=== PATIENT | female | born 1980 ===

== ENCOUNTER 2017-03-23 07:00 | Inpatient (IN) ==
[2017-03-23] MEDS: LACTATED RINGERS 1,000 ML IV SCH ×2 (07:35→08:40)
[2017-03-23] MEDS ORDERED: ceFAZolin 2,000 MG in PREMIX 1 EACH IV ONE (07:56)
[2017-03-23] MEDS ORDERED: FAMOTIDINE 20 MG/2 ML VIAL IV ONE (07:56)
[2017-03-23] MEDS ORDERED: CITRIC ACID/SODIUM CITRATE 30 ML UDCUP PO ONE (07:56)
[2017-03-23] MEDS ORDERED: hydrALAZINE 20 MG/1 ML VIAL IV PRN (08:01)
[2017-03-23 08:16] LABS: Basophils % 0.4 % (0.0-0.8); Eosinophils # 0.1 10*3/uL (0.0-0.87); Hematocrit 34.3 VOL% (35.7-47.0); Hemoglobin 10.6 GM/DL (12.0-16.0); Immature Granulocytes % 0.5 %; Immature Granulocytes Absolute 0.05 #; Lymphocytes # 1.9 10*3/uL (1.4-4.0); Lymphocytes % 21.2 % (21.3-54.2); Mean Corpuscular HGB Conc 30.9 GM/DL (32-36); Mean Corpuscular Hemoglobin 23 PG (27-34); Mean Corpuscular Volume 74.9 FL (87-102); Mean Platelet Volume 9.8 FL (9.6-12.0); Monocytes # 0.7 10*3/uL (0.11-0.8); Monocytes % 7.2 % (1.7-12.7); Neutrophils # 6.4 10*3/uL (1.4-7.4); Neutrophils % 69.7 % (38.7-73.9); Platelet Count 323 T/CUMM (130-400); Red Blood Count 4.58 MC/CUMM (3.8-5.5); White Blood Count 9.1 T/CUMM (4-12)
[2017-03-23 08:25] LABS: INR 0.9; PT Patient Result 9.8 SECS; Partial Thromboplastin Time 28.6 SECS (0-40)
[2017-03-23] MEDS ORDERED: OXYTOCIN 10 UNIT/ML VIAL IM ONE (08:29)
[2017-03-23] MEDS ORDERED: OXYTOCIN/LR 30 UNIT/1,000 ML BAG IV ONE (08:30)
[2017-03-23 08:52] LABS: Albumin 2.5 G/DL (3.4-5.0); Bilirubin,Total 0.4 MG/DL (0.2-1.0); Calcium 8.2 MG/DL (8.5-10.1); Osmolality,Calculated 274.5 MOS/KG (273-304); Potassium 4.2 MMOL/L (3.5-5.1); Total Protein 6.8 G/DL (6.4-8.3)
[2017-03-23] MEDS ORDERED: CLINDAMYCIN INJ 900 MG in PREMIX 1 EACH IV ONE (09:00)
[2017-03-23] MEDS ORDERED: PROPOFOL 200 MG/20 ML VIAL IV ONE (09:12)
[2017-03-23] MEDS ORDERED: ONDANSETRON 4 MG/2 ML VIAL ONE (09:41)
[2017-03-23] MEDS ORDERED: fentaNYL 100 MCG/2 ML VIAL ONE (10:29)
[2017-03-23 10:46] LABS: Apearance,Urine CLEAR (Clear); Bilirubin,Urine Negative (Negative); Blood, Urine Negative (Negative); Glucose,Urine (UA) Negative (Negative); Ketones,Urine Negative (Negative); Mucus,Urine Occasional /LPF (Occasional); Nitrite,Urine Negative (Negative); Protein,Urine 100 MG/DL; RBC,Urine 2 /HPF (0-4); Squamous Epithelial Cell,Urine Occasional /HPF (0-10); Urine Color Yellow (Yellow); Urine Specific Gravity 1.019 (1.001-1.035); Urine Urobilinogen < 2.0 EU/DL (0.2-1.0); WBC,Urine 1 /HPF (0-6)
[2017-03-23 10:55] LABS: Cord Arterial Blood HCO3 20.9 MMOL/L
[2017-03-23 10:58] LABS: Cord Venous Blood HCO3 22.8 MMOL/L; Cord Venous Blood PCO2 43.7 MMHG; Cord Venous Blood PO2 30.3
--- NOTE | 2017-03-23 13:04 | OB/GYN History & Physical ---
History of Present Illness Chief complaint: Scheduled elective repeat section at 39 weeks gestation History of present illness: Ms. Fermin is a 37 year old female Multiple parous female previous 2 presents for repeat section at 39 weeks gestation. Initial care was at the [facility]. This patient subsequently also had associated care with my office. is complicated by gestational diabetes where she was placed on a diet noncompliant. Also -induced hypertension where she was placed on labetalol 200 mg twice daily. She also initiated nonstress test beginning at 32 weeks gestation which she was within normal limits. Presently she is prepared for section risks benefits thoroughly discussed she is in full agreement. On admission blood pressures are elevated she received 2 doses of IV Apresoline. And also prior to her section she also received more during the administration of the spinal anesthetic. heart tones have been category 1 throughout her evaluation. 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 - Constitutional General appearance: no acute distress - Antepartum / Post Antepartum Exam Cervix -Dilatation: Thick and closed - Head Head exam: Present: normal inspection - Eye Eye exam: Present: EOMI Pupils: Present: MALINI - ENT ENT exam: Present: normal exam - Neck Neck exam: Present: normal inspection - Respiratory Respiratory exam: Present: clear to auscultation bilaterally - Breast Breasts: as per HPI Menstruation: as per HPI - Cardiovascular Cardiovascular exam: Present: regular rate and rhythm - GI/Abdominal GI/Abdominal exam: Present: normal bowel sounds - Extremities Exam Extremities exam: Present: normal inspection - Back Exam Back exam: Present: normal inspection - Neurological Exam Neurological exam: Present: alert, oriented X3 - Psychiatric Psychiatric exam: Present: normal affect - Skin Skin exam: Present: normal color Assessment and Plan (1) PIH ( induced hypertension) Status: Acute Assessment and plan: Patient receiving labetalol, also IV Apresoline on admission. We will plan on a repeat section risks benefits are discussed she is in full agreement Current Visit: Yes (2) Gestational diabetes Status: Acute Current Visit: Yes (3) Status post repeat low transverse section Status: Acute Current Visit: Yes Results - Labs CBC & BMP: 03/23/17 08:03 03/23/17 08:03
[2017-03-23] MEDS ORDERED: OXYTOCIN/LR 20 UNIT/1,000 ML BAG IV ONE (13:06)
[2017-03-23] MEDS ORDERED: IBUPROFEN 800 MG TABLET PO PRN (13:06)
[2017-03-23] MEDS ORDERED: RHO(D) IMMUNE GLOBULIN 300 MCG SYRINGE IM ONE (13:06)
[2017-03-23] MEDS ORDERED: ONDANSETRON 4 MG/2 ML VIAL IV PRN (13:06)
[2017-03-23] MEDS ORDERED: ACETAMINOPHEN 325 MG TABLET PO PRN (13:06)
[2017-03-23] MEDS ORDERED: LACTATED RINGERS 1,000 ML IV SCH (13:30)
--- NOTE | 2017-03-23 14:36 | Anesthesia Post-Op ---
Anesthesia Post OP - Post Ansesthetic Evaluation Patient seen in post op: Yes Resp: within normal limits CV: within normal limits Mental: within normal limits Temp: within normal limits [id number]: within normal limits Nausea and Vomiting: within normal limits Pain: within normal limits
[2017-03-23] MEDS: CLINDAMYCIN INJ 900 MG in PREMIX 1 EACH IV SCH (17:42)
[2017-03-23 17:53] LABS: Basophils % 0.2 % (0.0-0.8); Eosinophils % 0.1 % (0.00-10.9); Hematocrit 33.8 VOL% (35.7-47.0); Hemoglobin 10.5 GM/DL (12.0-16.0); Immature Granulocytes % 0.5 %; Immature Granulocytes Absolute 0.07 #; Lymphocytes % 7.8 % (21.3-54.2); Mean Corpuscular HGB Conc 31.1 GM/DL (32-36); Mean Corpuscular Hemoglobin 23 PG (27-34); Mean Corpuscular Volume 74.9 FL (87-102); Mean Platelet Volume 9.5 FL (9.6-12.0); Monocytes # 0.8 10*3/uL (0.11-0.8); Monocytes % 5.9 % (1.7-12.7); Neutrophils # 11.4 10*3/uL (1.4-7.4); Neutrophils % 85.5 % (38.7-73.9); Platelet Count 290 T/CUMM (130-400); Red Blood Count 4.51 MC/CUMM (3.8-5.5); White Blood Count 13.4 T/CUMM (4-12)
[2017-03-23] MEDS: DOCUSATE SODIUM 100 MG CAPSULE PO SCH (20:55)
[2017-03-24] MEDS: CLINDAMYCIN INJ 900 MG in PREMIX 1 EACH IV SCH (02:10)
[2017-03-24] MEDS: guaiFENesin 200 MG/10 ML UDCUP PO PRN ×2 (02:10→09:18)
[2017-03-24] MEDS: MAGNESIUM HYDROXIDE SUSP 30 ML UDCUP PO PRN (08:06)
[2017-03-24] MEDS: DOCUSATE SODIUM 100 MG CAPSULE PO SCH ×2 (08:06→19:35)
[2017-03-24] MEDS: MULTIVITAMIN (PRENATAL) TABLET PO SCH (08:06)
[2017-03-24] MEDS: SIMETHICONE CHEW 80 MG TABLET PO PRN (08:06)
[2017-03-24 08:12] LABS: Basophils % 0.3 % (0.0-0.8); Eosinophils % 0.3 % (0.00-10.9); Hematocrit 32.9 VOL% (35.7-47.0); Hemoglobin 10.3 GM/DL (12.0-16.0); Immature Granulocytes % 0.9 %; Lymphocytes # 1.6 10*3/uL (1.4-4.0); Lymphocytes % 13.3 % (21.3-54.2); Mean Corpuscular HGB Conc 31.3 GM/DL (32-36); Mean Corpuscular Hemoglobin 24 PG (27-34); Mean Corpuscular Volume 75.1 FL (87-102); Mean Platelet Volume 9.4 FL (9.6-12.0); Monocytes # 0.9 10*3/uL (0.11-0.8); Monocytes % 7.7 % (1.7-12.7); Neutrophils # 9.1 10*3/uL (1.4-7.4); Neutrophils % 77.5 % (38.7-73.9); Platelet Count 292 T/CUMM (130-400); Red Blood Count 4.38 MC/CUMM (3.8-5.5); Red Cell Distribution Width 14.3 % (9.3-17.3); White Blood Count 11.7 T/CUMM (4-12)
--- NOTE | 2017-03-24 08:24 | OB/GYN Progress Note ---
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 Vitals: Vital Signs Temp Pulse Resp BP Pulse Ox 03/24/17 07:42 97.5 F L 85 20 161/78 97 03/24/17 06:00 20 03/24/17 04:10 98.0 F 88 20 146/83 96 03/24/17 00:10 98.5 F 92 H 20 149/80 96 03/23/17 20:55 84 157/95 03/23/17 19:50 158/92 03/23/17 19:40 98.5 F 79 20 156/93 96 03/23/17 16:40 74 20 157/82 98 03/23/17 15:40 71 20 159/81 97 03/23/17 14:40 75 20 170/86 97 03/23/17 14:10 73 20 162/94 97 03/23/17 13:40 97.5 F L 78 20 152/95 97 General appearance: no acute distress, morbidly obese - Head Head exam: Present: normocephalic - Eye Eye exam: Present: EOMI Pupils: Present: MALINI - GI/Abdominal GI/Abdominal exam: Present: soft, other (Incision intact) Results - Labs CBC & BMP: 03/24/17 08:04 03/23/17 08:03
[2017-03-25] MEDS: MAGNESIUM HYDROXIDE SUSP 30 ML UDCUP PO PRN (09:00)
[2017-03-25] MEDS: DOCUSATE SODIUM 100 MG CAPSULE PO SCH ×2 (09:00→21:28)
[2017-03-25] MEDS: MULTIVITAMIN (PRENATAL) TABLET PO SCH (09:00)
--- NOTE | 2017-03-25 10:43 | OB/GYN Progress Note ---
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 Explained to her that her BP is still up and I will increase her dose of Procardia to 60. Pt amenable. 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 - Constitutional Vitals: Vital Signs Temp Pulse Resp BP Pulse Ox 03/25/17 08:00 97.7 F 88 20 163/92 99 03/25/17 07:59 20 03/25/17 06:00 18 03/25/17 04:20 97.9 F 94 H 20 158/91 99 03/25/17 02:00 18 03/25/17 00:00 97.8 F 100 H 18 152/88 99 03/24/17 21:00 94 H 20 03/24/17 19:35 98.4 F 94 H 20 158/83 99 03/24/17 18:00 18 03/24/17 16:00 98.4 F 88 18 146/85 95 03/24/17 14:00 18 03/24/17 12:00 97.8 F 91 H 20 157/90 95 General appearance: no acute distress, morbidly obese - Head Head exam: Present: normal inspection, normocephalic - Eye Eye exam: Present: EOMI Pupils: Present: MALINI - GI/Abdominal GI/Abdominal exam: Present: other (Incision intact) Results - Labs CBC & BMP: 03/24/17 08:04 03/23/17 08:03
[2017-03-26 08:15] VITALS: BP 162/92
[2017-03-26] MEDS: MULTIVITAMIN (PRENATAL) TABLET PO SCH (09:00)
[2017-03-26] MEDS: SIMETHICONE CHEW 80 MG TABLET PO PRN (09:00)
[2017-03-26] MEDS: DOCUSATE SODIUM 100 MG CAPSULE PO SCH (09:00)
[2017-03-26] MEDS: MAGNESIUM HYDROXIDE SUSP 30 ML UDCUP PO PRN (09:00)
--- NOTE | 2017-03-26 09:38 | Discharge Summary ---
Hospital Course - Hospital Course Hospital Course: Routine post op course. Feels good and is ready to go home. Asked that she f/u with Dr. Pepe in 10 days for BP check and wound check Diagnosis - Discharge Diagnosis (1) Status post repeat low transverse section Status: Acute Discharge Plan - Discharge Data Disposition: Disch To Home/Self Care Condition at Discharge: Stable Discharge Diet: diabetic diet, heart healthy, low salt diet Activity: other (Routine post op) Hygiene: may shower Weight Bearing at Discharge: full weight bearing Driving: not for (2 weejs) Contact your physician if you experience:: fever over 101, Difficulty voiding, Redness or swelling - Discharge Medications New Docusate Sodium Cap [Colace Cap] 100 mg PO BID #30 capsule HYDROcodone/ACETAMIN 5-325 [[place] 5-325] 2 tablet PO Q6H PRN #20 tablet PRN Reason: Pain Severe (8-10) Ibuprofen Tab [Motrin Tab] 800 mg PO Q8H PRN #30 tablet PRN Reason: Pain Severe (8-10) NIFEdipine XL TAB [Procardia Xl] 90 mg PO DAILY #30 tablet No Action Labetalol Tab [Trandate Tab] 100 mg PO BID - Follow Up or Referral - Forms/Instructions Exam - Constitutional Vitals: Period Temp Pulse Resp BP Sys/Cormier Pulse Ox Last 24 Hr 97.0 F-98.4 F 85-98 18-20 146-163/89-94 98-100 General appearance: no acute distress, morbidly obese - Head Head exam: Present: normal inspection - Eye Eye exam: Present: EOMI Pupils: Present: MALINI - GI/Abdominal GI/Abdominal exam: Present: other (incision intact, obese) DS: Provider Date of admission: 03/23/17 07:00 Primary care physician: Christie Stephens MD Attending physician on admission: Lilly Pepe MD Consults: 03/23/17 07:56 Consult to Anesthesiology [CONS] Routine Consulting Provider: Reason for Anesthesiology: Pre-op Clearance 03/23/17 13:06 Consult to Speech Therapy Director [CONS] Routine Consult Speech Therapy Director: Breast Feeding Discharging clinician: Mary Beth Campos MD
--- NOTE | 2017-05-12 20:07 | Operative Note ---
DATE OF SURGERY: 03/23/2017 PREOPERATIVE DIAGNOSIS: REPEAT SECTION. POSTOPERATIVE DIAGNOSIS: SAME. PROCEDURE: Low transverse section. SURGEON: Lilly Pepe MD This patient delivered of a 7 pound 7 ounce infant male with 3-cord vessels OPERATIVE PROCEDURE: The patient was taken to the Operating Suite, and after administration of regio nal anesthesia, was placed in supine position. Through a Pfannenstiel incision through the skin and s ubcutaneous layer, and through the fascial layer, the rectus abdominis split in the midline. Abdomin al peritoneum was entered. A bladder flap was created. A low transverse incision was made. Fetus wa s delivered, suctioned, cord doubly clamped. Cord blood and cord gas obtained. The uterus was injec max with intrauterine Pitocin. Placenta was removed manually. The incision was repaired with 0-Vicr yl in a continuous locking manner with second layer to imbricate the first layer with #1 Vicryl. Per itoneum approximated with 2-0 Vicryl. All the lap, sponge, and instruments were accounted for. The patient was stable and taken to the recovery room in a stable condition. The was taken to [facility] in a stable condition.
== END 2017-03-26 11:15 | disposition home or self-care (01) | DRG 540 ==
LOC: N.LD 07:00 → N.OB 13:40
PROVIDERS: ADMIT Obstetrics & Gynecology; ATTEND Obstetrics & Gynecology
PROC: LDCSECT (ICD-10-PCS; 2017-03-23 13:45)

== ENCOUNTER 2020-01-10 20:23 | Observation (INO) ==
[2020-01-10] MEDS ORDERED: miSOPROStoL 200 MCG TABLET VAG ONE (21:26)
[2020-01-10] MEDS ORDERED: ONDANSETRON 4 MG/2 ML VIAL IV PRN (21:26)
[2020-01-10] MEDS ORDERED: ACETAMINOPHEN 325 MG TABLET PO PRN (21:26)
[2020-01-10] MEDS ORDERED: MORPHINE 4 MG/1 ML VIAL IV PRN (21:26)
[2020-01-10 21:33] LABS: Basophils % 0.4 % (0.0-0.8); Eosinophils # 0.1 10*3/uL (0.0-0.87); Eosinophils % 1.4 % (0.00-10.9); Hematocrit 35.9 VOL% (35.7-47.0); Hemoglobin 11.5 GM/DL (12.0-16.0); Immature Granulocytes % 0.5 %; Immature Granulocytes Absolute 0.05 #; Lymphocytes # 2.1 10*3/uL (1.4-4.0); Lymphocytes % 22.2 % (21.3-54.2); Mean Corpuscular Volume 81.8 FL (87-102); Mean Platelet Volume 9.1 FL (9.6-12.0); Monocytes % 6.2 % (1.7-12.7); Neutrophils % 69.3 % (38.7-73.9); Platelet Count 256 T/CUMM (130-400); Red Blood Count 4.39 MC/CUMM (3.8-5.5); Red Cell Distribution Width 13.8 % (9.3-17.3); White Blood Count 9.6 T/CUMM (4-12)
[2020-01-10] MEDS ORDERED: oxyCODONE/ACETAMINOPHEN 5-325 MG TABLET PO PRN (23:04)
[2020-01-11] MEDS: LACTATED RINGERS 1,000 ML IV SCH ×2 (00:23→10:06)
[2020-01-11 05:38] LABS: Basophils % 0.4 % (0.0-0.8); Eosinophils # 0.2 10*3/uL (0.0-0.87); Eosinophils % 1.8 % (0.00-10.9); Hematocrit 35.2 VOL% (35.7-47.0); Hemoglobin 11.3 GM/DL (12.0-16.0); Immature Granulocytes % 0.5 %; Immature Granulocytes Absolute 0.05 #; Lymphocytes # 2.9 10*3/uL (1.4-4.0); Lymphocytes % 29.9 % (21.3-54.2); Mean Corpuscular HGB Conc 32.1 GM/DL (32-36); Mean Corpuscular Volume 82.6 FL (87-102); Monocytes % 6.6 % (1.7-12.7); Neutrophils % 60.8 % (38.7-73.9); Platelet Count 265 T/CUMM (130-400); Red Blood Count 4.26 MC/CUMM (3.8-5.5); Red Cell Distribution Width 13.8 % (9.3-17.3); White Blood Count 9.8 T/CUMM (4-12)
[2020-01-11] MEDS ORDERED: PANTOPRAZOLE 40 MG VIAL IV SCH (09:00)
[2020-01-11 16:55] VITALS: BP 137/93
== END 2020-01-11 15:35 | disposition home or self-care (01) ==
LOC: EDBD → EDUNIT# → N.EDINP 20:23 → N.ED 20:23 → N.EDINP 22:38 → N.OB 23:03
PROVIDERS: ADMIT Obstetrics & Gynecology; ATTEND Obstetrics & Gynecology